=== PATIENT | female | born 1990 | race Two or more races ===

== ENCOUNTER 2018-03-17 08:01 | Inpatient (IN) | payer SELFPAY ==
[~2018-03-17] VITALS: Ht 154.9 cm; Wt 50.2 kg
[2018-03-17] MEDS ORDERED: CARI6CAP PO (08:31)
[2018-03-17] MEDS ORDERED: FLUO-191 PO (08:31)
[2018-03-17 09:15] LABS: AMPHET/METH SCREEN,URINE NEGATIVE (NEGATIVE); BARBITURATE SCREEN, URINE NEGATIVE (NEGATIVE); BENZODIAZEPINES SCREEN,URINE NEGATIVE (NEGATIVE); CANNABINOID SCREEN,URINE POSITIVE (NEGATIVE); COCAINE SCREEN,URINE NEGATIVE (NEGATIVE); METHADONE SCREEN, URINE NEGATIVE (NEGATIVE); OPIATE SCREEN,URINE NEGATIVE (NEGATIVE); PHENCYCLIDINE SCREEN,URINE NEGATIVE (NEGATIVE)
[2018-03-17] MEDS ORDERED: LORazepam 2 MG TABLET PO ONE (09:15)
[2018-03-17 09:30] LABS: BASOPHILS % (AUTO) 0.6 % (0.0-2.0); EOSINOPHILS % (AUTO) 2.4 % (1.0-6.0); HEMATOCRIT 41.2 % (36-46); LYMPHOCYTES # (AUTO) 1.8 K/uL (1.0-4.8); LYMPHOCYTES % (AUTO) 23.9 % (22.0-44.0); MEAN CORPUSCULAR HEMOGLOBIN 31.1 pg (26.0-34.0); MEAN CORPUSCULAR HGB CONC 33.9 G/dL (31.0-37.0); MEAN CORPUSCULAR VOLUME 92 fL (80-100); MONOCYTES # (AUTO) 0.5 K/uL (0.1-1.0); MONOCYTES % (AUTO) 7.1 % (2.0-9.0); PLATELET COUNT (AUTO) 369 K/uL (150-450); RED CELL DISTRIBUTION WIDTH 14.8 % (11.5-14.5)
[2018-03-17 09:40] LABS: ANION GAP 7 mmol/L (8-16); CARBON DIOXIDE 30 mmol/L (22-29); CHLORIDE 103 mmol/L (98-107); CREATININE 0.53 mg/dL (0.60-1.30); GLOMERULAR FILTR. RATE CALC > 60 mL/min (>60); GLUCOSE,RANDOM 91 mg/dL (70-110); POTASSIUM 3.9 mmol/L (3.5-5.1); SODIUM SERUM 140 mmol/L (136-145); UREA NITROGEN, BLOOD 6 mg/dL (7-18)
[2018-03-17 09:47] LABS: ALANINE AMINOTRANSFERASE 29 U/L (12-78); ALBUMIN 3.3 g/dL (3.4-5.0); ALKALINE PHOSPHATASE 63 U/L (46-116); ASPARTATE AMINOTRANSFERASE 19 U/L (15-37); BILIRUBIN,TOTAL 0.1 mg/dL (0.1-1.0)
[2018-03-17] MEDS ORDERED: ACETAMINOPHEN 325 MG TABLET PO ONE (10:00)
[2018-03-17 11:05] LABS: HCG,QUANTITATIVE < 1 mIU/mL (0-6)
[2018-03-17] MEDS: HALOPERIDOL 5 MG TABLET PO PRN (16:40)
[2018-03-17] MEDS: LORazepam 2 MG TABLET PO PRN (16:40)
[2018-03-17 18:03] VITALS: BP 114/71
[2018-03-17] MEDS ORDERED: DOCUSATE SODIUM 100 MG CAPSULE PO PRN (19:30)
[2018-03-17] MEDS ORDERED: GuaiFENesin/D-METHORPHAN [SUGAR-FREE] 200-20MG/10 ML SYRUP UDCUP PO PRN (19:30)
[2018-03-17] MEDS ORDERED: CloNIDine HCL 0.1 MG TABLET PO PRN (19:30)
[2018-03-17] MEDS ORDERED: PETROLATUM,WHITE 71 GM JELLY TP PRN (19:30)
[2018-03-17] MEDS ORDERED: ONDANSETRON HCL 4 MG TABLET PO PRN (19:30)
[2018-03-17] MEDS ORDERED: ALBUTEROL SULFATE HFA 90 MCG/PUFF 8 GM INHALER IH PRN (19:30)
[2018-03-17] MEDS ORDERED: LOPERAMIDE HCL 2 MG CAPSULE PO PRN (19:30)
[2018-03-17] MEDS ORDERED: ACETAMINOPHEN 325 MG TABLET PO PRN (19:30)
[2018-03-17] MEDS ORDERED: MAG HYDROX/AL HYDROX/SIMETH ES 30 ML SUSPENSION UDCUP PO PRN (19:30)
[2018-03-17] MEDS ORDERED: MAGNESIUM HYDROXIDE SUSPENSION 30 ML UDCUP PO PRN (19:30)
[2018-03-18] VITALS: BP 125/87
[2018-03-18] MEDS: LORazepam 2 MG TABLET PO PRN ×4 (00:04→17:45)
[2018-03-18] MEDS: ZOLPIDEM TARTRATE 10 MG TABLET PO PRN ×2 (00:04→21:14)
[2018-03-18 03:21] VITALS: BP 109/71
[2018-03-18] MEDS: HALOPERIDOL 5 MG TABLET PO PRN ×2 (03:26→10:25)
[2018-03-18] MEDS: IBUPROFEN 400 MG TABLET PO PRN ×2 (03:26→13:50)
[2018-03-18] MEDS: NICOTINE 14 MG/24 HOUR PATCH TD SCH (08:13)
[2018-03-18 08:45] VITALS: BP 112/67
[2018-03-18] MEDS: CYCLOBENZAPRINE HCL 10 MG TABLET PO PRN (08:45)
[2018-03-18 09:34] LABS: BASOPHILS % (AUTO) 0.5 % (0.0-2.0); EOSINOPHILS % (AUTO) 1.8 % (1.0-6.0); HEMATOCRIT 41.4 % (36-46); HEMOGLOBIN 14.4 g/dL (12.0-16.0); LYMPHOCYTES # (AUTO) 1.6 K/uL (1.0-4.8); MEAN CORPUSCULAR HEMOGLOBIN 31.7 pg (26.0-34.0); MEAN CORPUSCULAR HGB CONC 34.6 G/dL (31.0-37.0); MEAN CORPUSCULAR VOLUME 91 fL (80-100); MONOCYTES # (AUTO) 0.5 K/uL (0.1-1.0); MONOCYTES % (AUTO) 6.5 % (2.0-9.0); NEUTROPHILS # (AUTO) 4.7 K/uL (1.8-7.7); NEUTROPHILS % (AUTO) 68.2 % (40.0-70.0); PLATELET COUNT (AUTO) 378 K/uL (150-450); RED BLOOD CELL COUNT(AUTO) 4.53 MIL/uL (4.00-5.20); RED CELL DISTRIBUTION WIDTH 14.7 % (11.5-14.5)
[2018-03-18 09:50] LABS: HEMOGLOBIN A1C 5.6 % (4.5-6.2)
[2018-03-18 09:58] LABS: ALANINE AMINOTRANSFERASE 29 U/L (12-78); ALBUMIN 3.4 g/dL (3.4-5.0); ALKALINE PHOSPHATASE 59 U/L (46-116); ANION GAP 7 mmol/L (8-16); ASPARTATE AMINOTRANSFERASE 23 U/L (15-37); BILIRUBIN,TOTAL 0.2 mg/dL (0.1-1.0); CALCIUM, TOTAL 9.5 mg/dL (8.8-10.5); CARBON DIOXIDE 32 mmol/L (22-29); CHLORIDE 101 mmol/L (98-107); CHOL/HDL RATIO 3.3 (3.9-5.7); CHOLESTEROL 205 mg/dL (131-200); CREATININE 0.66 mg/dL (0.60-1.30); GLOMERULAR FILTR. RATE CALC > 60 mL/min (>60); GLUCOSE,RANDOM 132 mg/dL (70-110); HDL CHOLESTEROL 62 mg/dL (40-60); LDL CHOL (CALC.) 110 mg/dL (0-130); POTASSIUM 3.6 mmol/L (3.5-5.1); SODIUM SERUM 140 mmol/L (136-145); THYROID STIMULATING HORMONE 2.11 uIU/mL (0.36-3.74); TOTAL PROTEIN, SERUM 6.6 g/dL (6.4-8.2); TRIGLYCERIDES 163 mg/dL (15-150); UREA NITROGEN, BLOOD 11 mg/dL (7-18)
[2018-03-18 16:22] VITALS: BP 105/67
[2018-03-19] MEDS: LORazepam 2 MG TABLET PO PRN ×4 (02:04→20:13)
[2018-03-19 02:30] VITALS: BP 122/70
[2018-03-19] MEDS: IBUPROFEN 400 MG TABLET PO PRN (02:32)
[2018-03-19] MEDS: HALOPERIDOL 5 MG TABLET PO PRN ×3 (02:55→20:12)
[2018-03-19 08:05] VITALS: BP 110/61
[2018-03-19] MEDS: NICOTINE 14 MG/24 HOUR PATCH TD SCH (08:08)
[2018-03-19] MEDS: CYCLOBENZAPRINE HCL 10 MG TABLET PO PRN (15:03)
[2018-03-19 16:00] VITALS: BP 114/77
[2018-03-19] MEDS: ZOLPIDEM TARTRATE 10 MG TABLET PO PRN (21:13)
[2018-03-20 03:22] VITALS: BP 95/70
[2018-03-20] MEDS: CYCLOBENZAPRINE HCL 10 MG TABLET PO PRN (03:22)
[2018-03-20 03:40] VITALS: BP 108/72
[2018-03-20] MEDS: LORazepam 2 MG TABLET PO PRN ×2 (03:43→08:49)
[2018-03-20] MEDS: HALOPERIDOL 5 MG TABLET PO PRN (04:55)
[2018-03-20] MEDS ORDERED: PALIPERIDONE PALMITATE 234 MG/1.5 ML SYRINGE IM ONE (08:00)
[2018-03-20] MEDS: NICOTINE 14 MG/24 HOUR PATCH TD SCH (08:49)
[2018-03-20 08:52] VITALS: BP 111/92
== END 2018-03-20 13:05 | disposition home or self-care (01) | DRG 885 ==
LOC: EMS 08:02 → 3EI 14:27
PROVIDERS: ADMIT Psychiatry & Neurology Psychiatry; ATTEND Psychiatry & Neurology Psychiatry
DX: F31.64 Bipolar disorder, current episode mixed, severe, with psychotic features (principal); E78.5 Hyperlipidemia, unspecified; F10.10 Alcohol abuse, uncomplicated; F17.210 Nicotine dependence, cigarettes, uncomplicated; F12.10 Cannabis abuse, uncomplicated; F41.9 Anxiety disorder, unspecified; G47.00 Insomnia, unspecified; G89.29 Other chronic pain; M25.551 Pain in right hip; Z88.2 Allergy status to sulfonamides; Z79.899 Other long term (current) drug therapy; Z71.6 Tobacco abuse counseling; Z71.51 Drug abuse counseling and surveillance of drug abuser
CPT/HCPCS: 83036; 84443; G0480

== ENCOUNTER 2018-03-26 08:18 | Inpatient (IN) | payer MEDICAID ==
[~2018-03-26] VITALS: Ht 157.5 cm; Wt 50.9 kg
[2018-03-26] MEDS ORDERED: LORazepam 2 MG/ML VIAL ONE (08:28)
[2018-03-26] MEDS ORDERED: DiphenhydrAMINE HCL 50 MG/ML VIAL ONE (08:28)
[2018-03-26] MEDS ORDERED: HALOPERIDOL LACTATE 5 MG/ML VIAL ONE (08:28)
[2018-03-26] MEDS ORDERED: DiphenhydrAMINE HCL 50 MG/ML VIAL IM ONE (08:45)
[2018-03-26] MEDS ORDERED: HALOPERIDOL LACTATE 5 MG/ML VIAL IM ONE (08:45)
[2018-03-26] MEDS ORDERED: LORazepam 2 MG/ML VIAL IM ONE (08:45)
[2018-03-26 09:51] LABS: BASOPHILS % (AUTO) 0.4 % (0.0-2.0); EOSINOPHILS % (AUTO) 0.1 % (1.0-6.0); HEMATOCRIT 39.4 % (36-46); HEMOGLOBIN 13.4 g/dL (12.0-16.0); LYMPHOCYTES # (AUTO) 1.3 K/uL (1.0-4.8); LYMPHOCYTES % (AUTO) 13.6 % (22.0-44.0); MEAN CORPUSCULAR VOLUME 91 fL (80-100); MONOCYTES # (AUTO) 0.4 K/uL (0.1-1.0); MONOCYTES % (AUTO) 4.3 % (2.0-9.0); NEUTROPHILS # (AUTO) 7.5 K/uL (1.8-7.7); NEUTROPHILS % (AUTO) 81.6 % (40.0-70.0); PLATELET COUNT (AUTO) 339 K/uL (150-450); RED BLOOD CELL COUNT(AUTO) 4.33 MIL/uL (4.00-5.20)
[2018-03-26 10:02] LABS: ANION GAP 7 mmol/L (8-16); CALCIUM, TOTAL 8.6 mg/dL (8.8-10.5); CARBON DIOXIDE 29 mmol/L (22-29); CHLORIDE 108 mmol/L (98-107); CREATININE 0.68 mg/dL (0.60-1.30); GLOMERULAR FILTR. RATE CALC > 60 mL/min (>60); GLUCOSE,RANDOM 80 mg/dL (70-110); POTASSIUM 3.7 mmol/L (3.5-5.1); SODIUM SERUM 144 mmol/L (136-145); UREA NITROGEN, BLOOD 7 mg/dL (7-18)
[2018-03-26 10:03] LABS: AMPHET/METH SCREEN,URINE POSITIVE (NEGATIVE); BARBITURATE SCREEN, URINE NEGATIVE (NEGATIVE); BENZODIAZEPINES SCREEN,URINE NEGATIVE (NEGATIVE); CANNABINOID SCREEN,URINE POSITIVE (NEGATIVE); COCAINE SCREEN,URINE NEGATIVE (NEGATIVE); METHADONE SCREEN, URINE NEGATIVE (NEGATIVE); OPIATE SCREEN,URINE NEGATIVE (NEGATIVE); PHENCYCLIDINE SCREEN,URINE NEGATIVE (NEGATIVE)
[2018-03-26 10:07] LABS: BILIRUBIN,URINE NEGATIVE (NEGATIVE); GLUCOSE, URINE (UA) NEGATIVE (NEGATIVE); KETONES,URINE NEGATIVE (NEGATIVE); LEUKOCYTE ESTERASE ,URINE SMALL (NEGATIVE); NITRATE,URINE NEGATIVE (NEGATIVE); OCCULT BLOOD,URINE NEGATIVE (NEGATIVE); PROTEIN,URINE NEGATIVE (NEGATIVE); UROBILINOGEN,URINE 0.2 mg/dL (<=1.0)
[2018-03-26 10:08] LABS: ALANINE AMINOTRANSFERASE 28 U/L (12-78); ALBUMIN 3.4 g/dL (3.4-5.0); ALKALINE PHOSPHATASE 73 U/L (46-116); ASPARTATE AMINOTRANSFERASE 24 U/L (15-37); BILIRUBIN,TOTAL 0.2 mg/dL (0.1-1.0); TOTAL PROTEIN, SERUM 6.9 g/dL (6.4-8.2)
[2018-03-26 10:13] LABS: APPEARANCE,URINE CLEAR (CLEAR)
[2018-03-26 10:25] LABS: RBC,URINE None Seen /HPF (0-2)
[2018-03-26 10:26] LABS: BACTERIA,URINE Few /HPF (None Seen); SQUAMOUS EPITHELIAL CELL,UR Few /LPF (None Seen)
[2018-03-26] MEDS ORDERED: LORazepam 2 MG TABLET PO ONE (12:30)
[2018-03-26 17:26] VITALS: BP 102/74
[2018-03-26] MEDS ORDERED: ACETAMINOPHEN 325 MG TABLET PO PRN (17:30)
[2018-03-26] MEDS ORDERED: NICOTINE 14 MG/24 HOUR PATCH TD PRN (17:30)
[2018-03-26] MEDS ORDERED: PETROLATUM,WHITE 71 GM JELLY TP PRN (17:30)
[2018-03-26] MEDS ORDERED: ALBUTEROL SULFATE HFA 90 MCG/PUFF 8 GM INHALER IH PRN (17:30)
[2018-03-26] MEDS ORDERED: MAG HYDROX/AL HYDROX/SIMETH ES 30 ML SUSPENSION UDCUP PO PRN (17:30)
[2018-03-26] MEDS ORDERED: GuaiFENesin/D-METHORPHAN [SUGAR-FREE] 200-20MG/10 ML SYRUP UDCUP PO PRN (17:30)
[2018-03-26] MEDS ORDERED: MAGNESIUM HYDROXIDE SUSPENSION 30 ML UDCUP PO PRN (17:30)
[2018-03-26] MEDS ORDERED: LOPERAMIDE HCL 2 MG CAPSULE PO PRN (17:30)
[2018-03-26] MEDS ORDERED: CloNIDine HCL 0.1 MG TABLET PO PRN (17:30)
[2018-03-26] MEDS ORDERED: DOCUSATE SODIUM 100 MG CAPSULE PO PRN (17:30)
[2018-03-26] MEDS ORDERED: ONDANSETRON HCL 4 MG TABLET PO PRN (17:30)
[2018-03-26] MEDS: LORazepam 2 MG TABLET PO PRN (20:13)
[2018-03-26] MEDS: ZOLPIDEM TARTRATE 10 MG TABLET PO PRN (20:13)
[2018-03-26] MEDS: HALOPERIDOL 5 MG TABLET PO PRN (20:24)
[2018-03-27] MEDS: HALOPERIDOL 5 MG TABLET PO PRN ×3 (02:18→13:14)
[2018-03-27] MEDS: LORazepam 2 MG TABLET PO PRN ×4 (02:19→18:43)
[2018-03-27] MEDS ORDERED: HALOPERIDOL LACTATE 5 MG/ML VIAL ONE (03:08)
[2018-03-27] MEDS ORDERED: DiphenhydrAMINE HCL 50 MG/ML VIAL ONE (03:08)
[2018-03-27] MEDS ORDERED: LORazepam 2 MG/ML VIAL ONE (03:08)
[2018-03-27 03:15] VITALS: BP 119/76
[2018-03-27] MEDS ORDERED: DiphenhydrAMINE HCL 50 MG/ML VIAL IM ONE ×2 (03:15→09:00)
[2018-03-27] MEDS ORDERED: LORazepam 2 MG/ML VIAL IM ONE ×2 (03:15→09:00)
[2018-03-27] MEDS ORDERED: HALOPERIDOL LACTATE 5 MG/ML VIAL IM ONE ×2 (03:15→09:00)
[2018-03-27 08:44] LABS: HEMOGLOBIN A1C 5.7 % (4.5-6.2)
[2018-03-27 09:02] LABS: CHOL/HDL RATIO 2.4 (3.9-5.7); CHOLESTEROL 165 mg/dL (131-200); HCG,QUANTITATIVE < 1 mIU/mL (0-6); HDL CHOLESTEROL 68 mg/dL (40-60); LDL CHOL (CALC.) 83 mg/dL (0-130); THYROID STIMULATING HORMONE 0.98 uIU/mL (0.36-3.74); TRIGLYCERIDES 70 mg/dL (15-150)
[2018-03-27 09:18] VITALS: BP 98/66
[2018-03-27] MEDS ORDERED: BACITRACIN 28.4 GM OINTMENT TP PRN (14:30)
[2018-03-27 16:06] VITALS: BP 100/62
[2018-03-27] MEDS: ZOLPIDEM TARTRATE 10 MG TABLET PO PRN (20:58)
[2018-03-28] MEDS: LORazepam 2 MG TABLET PO PRN ×4 (02:47→23:56)
[2018-03-28 03:45] VITALS: BP 101/70
[2018-03-28] MEDS: HALOPERIDOL 5 MG TABLET PO PRN ×3 (07:57→23:55)
[2018-03-28 08:12] VITALS: BP 122/68
[2018-03-28] MEDS: IBUPROFEN 400 MG TABLET PO PRN ×2 (10:21→20:07)
[2018-03-28 16:07] VITALS: BP 110/65
[2018-03-28] MEDS: ZOLPIDEM TARTRATE 10 MG TABLET PO PRN (21:13)
[2018-03-29 00:03] VITALS: BP 109/65
[2018-03-29] MEDS: LORazepam 2 MG TABLET PO PRN ×3 (04:31→16:41)
[2018-03-29] MEDS: HALOPERIDOL 5 MG TABLET PO PRN ×3 (06:01→16:41)
[2018-03-29 08:00] VITALS: BP 106/67
[2018-03-29] MEDS ORDERED: TraZODone HCL 100 MG TABLET PO SCH ×2 (11:15→21:00)
[2018-03-29 17:11] VITALS: BP 108/70
[2018-03-29] MEDS ORDERED: PALIPERIDONE 6 MG ER TABLET PO SCH (21:00)
[2018-03-30] MEDS: HALOPERIDOL 5 MG TABLET PO PRN (01:14)
[2018-03-30] MEDS: LORazepam 2 MG TABLET PO PRN (01:14)
[2018-03-30 01:15] VITALS: BP 110/70
== END 2018-03-30 19:33 | disposition expired | DRG 753 ==
LOC: EMS 08:20 → B3A 16:10
PROVIDERS: ATTEND Psychiatry & Neurology Psychiatry
DX: F31.2 Bipolar disorder, current episode manic severe with psychotic features (principal); Z78.1 Physical restraint status; E78.5 Hyperlipidemia, unspecified; F10.10 Alcohol abuse, uncomplicated; F12.10 Cannabis abuse, uncomplicated; F15.10 Other stimulant abuse, uncomplicated; F41.9 Anxiety disorder, unspecified; G89.29 Other chronic pain; F17.210 Nicotine dependence, cigarettes, uncomplicated; G47.00 Insomnia, unspecified; Z79.899 Other long term (current) drug therapy; Z88.2 Allergy status to sulfonamides; Z88.8 Allergy status to other drugs, medicaments and biological substances; Z71.6 Tobacco abuse counseling; Z71.41 Alcohol abuse counseling and surveillance of alcoholic; Z71.51 Drug abuse counseling and surveillance of drug abuser
CPT/HCPCS: 83036; 84443; 87081; 87086; 96372; G0480; J1200; J1630; J2060